=== PATIENT | female | born 1970 | race Hispanic/Latino ===

== ENCOUNTER 2019-01-01 22:05 | Emergency (ER) | payer BC, OTHER ==
[2019-01-01] MEDS ORDERED: OCTYL 2-CYANOACRYLATE 1 EACH TP ONE ×2 (22:28→22:32)
== END 2019-01-01 23:12 | disposition home or self-care (01) ==
LOC: EDH 22:05
DX: I83.812 Varicose veins of left lower extremity with pain (principal); Z98.890 Other specified postprocedural states; Z90.49 Acquired absence of other specified parts of digestive tract
CPT/HCPCS: 12001